=== PATIENT | female | born 1945 | race Caucasian/White ===

== ENCOUNTER 2018-01-23 08:51 | Outpatient (REF) | payer MEDICARE, OTHER, SELFPAY ==
[2018-01-23 13:41] LABS: BUN 11 mg/dL (7-18); CREATININE 0.89 mg/dL (0.55-1.02); Calcium 8.7 mg/dL (8.5-10.1); Chloride 105 mmol/L (98-107); Cholesterol 185 mg/dL (50-200); Glucose 93 mg/dL (70-100); HDL Cholesterol 62 mg/dL (40-60); LDL CHOLESTEROL 103 mg/dL (<100); Potassium 4.1 mmol/L (3.5-5.1); Sodium 142 mmol/L (136-145); TSH (W/Ref FT4) 2.18 uIU/mL (0.358-3.74); Triglyceride 148 mg/dL (30-150)
== END 2018-01-23 09:11 ==
LOC: NCHCN 08:51
PROVIDERS: PCP Family Medicine; Visit Provider Family Medicine
DX: I10 Essential (primary) hypertension (principal); E03.9 Hypothyroidism, unspecified; E78.5 Hyperlipidemia, unspecified
CPT/HCPCS: 80048; 80061; 83721; 84443

== ENCOUNTER 2019-02-28 09:04 | Outpatient (REF) | payer MEDICARE, OTHER, SELFPAY ==
[2019-02-28 13:02] LABS: Anion Gap 11.5 mmol/L (3-11); BUN 10 mg/dL (7-18); CO2 26.5 mmol/L (21.0-32.0); CREATININE 0.98 mg/dL (0.55-1.02); Calcium 9.2 mg/dL (8.5-10.1); Chloride 105 mmol/L (98-107); Estimated GFR 55.33 (mL/min/1.73m2); Glucose 92 mg/dL (70-100); Potassium 3.9 mmol/L (3.5-5.1); Sodium 143 mmol/L (136-145); TSH (W/Ref FT4) 1.69 uIU/mL (0.36-3.74)
[2019-02-28 13:19] LABS: HGB 14.7 g/dL (12.0-15.5); Mean Corp. HGB Concentration 32.7 g/dL (32.0-36.0); Mean Corpuscular Hemoglobin 29.3 pg (27.0-33.0); Mean Corpuscular Volume 89.6 fL (80-95); Mean Platelet Volume 11.1 fL (8.0-11.0); Platelet Count 301 x1000/uL (130-400); RBC 5.02 m/cumm (4.00-5.20); RBC Distribution Width 13.9 % (11.7-14.6); White Blood Cell Count 8.36 k/cumm (4.4-10.8)
== END 2019-02-28 09:24 ==
LOC: NCHCN 09:04
PROVIDERS: PCP Family Medicine; Visit Provider Family Medicine
DX: I10 Essential (primary) hypertension (principal); E03.9 Hypothyroidism, unspecified
CPT/HCPCS: 80048; 85027; 84443

== ENCOUNTER 2019-04-28 01:22 | Outpatient (CLI) | payer MEDICARE, OTHER, SELFPAY ==
--- NOTE | 2019-04-28 11:01 | DI.MAMMO_ITS ---
EXAM: MAMMO SCREENING CLINICAL HISTORY: SCREENING Z12.31. TECHNIQUE: Full field digital CC and MLO mammographic images were obtained with 3D tomosynthesis and utilizing computer aided detection (CAD). COMPARISON: 2009 to 2016 FINDINGS: Breast Density - Category C - Heterogeneously dense Masses/Architectural Distortion: None seen. Microcalcifications: No suspicious pleomorphic-type calcifications are seen. There are scattered coar se calcifications in both breasts. Skin Thickening/Nipple Retraction: None. Axilla: Unremarkable. There is motion in the left cc view. A repeat left CC view is requested at no additional charge. IMPRESSION: 1. Right breast: BI-RADS Cat 2 - Benign Findings. No significant interval change with no specific fe atures of malignancy noted. 2. Left breast: BI-RADS Cat 0 - Assessment Incomplete: Repeat left CC view is requested due to motion . 3. Unless there is more urgent need, screening mammography is recommended, as per [employer] guidelines. BI-RADS Cat 0 - Assessment Incomplete: Need additional imaging evaluation BI-RADS Cat 2 - Benign Findings Breast Density - Category C - Heterogeneously dense A negative radiographic report should not delay biopsy if a dominant or clinically suspicious mass is present. Up to ten percent of cancers are not identified on mammography. A negative report may reinforce clinical impression. Adenosis and dense breasts may obscure an underlying neoplasm. False positive reports average 6 to 10%. Patient will receive a letter notifying them of these results.
== END 2019-04-28 01:42 ==
PROVIDERS: PCP Family Medicine; Visit Provider Family Medicine
DX: Z12.31 Encounter for screening mammogram for malignant neoplasm of breast (principal); R92.8 Other abnormal and inconclusive findings on diagnostic imaging of breast
CPT/HCPCS: 77063; 77067

== ENCOUNTER 2019-05-05 01:39 | Outpatient (CLI) | payer MEDICARE, OTHER, SELFPAY ==
--- NOTE | 2019-05-05 13:46 | DI.MAMMO_ITS ---
EXAM: MG MAMMO SCREEN CALL BACK UNI CLINICAL HISTORY: F/U ABNL MAMMO, REPEAT LT CC VIEW DUE TO MOTION TECHNIQUE: Craniocaudal full Field Digital Mammography views of the left breast with Computer Aided Diagnosis followed by Tomosynthesis . COMPARISON: Priors available for comparison. FINDINGS: Mammography/Tomosynthesis: Masses/Architectural Distortion: None seen. Microcalcifictions: No suspicious pleomorphic-type are seen. Skin Thickening/Nipple Retraction: None. IMPRESSION: 1. No evidence of malignancy is noted. 2. Unless there is more urgent need, follow-up screening mammography is recommended, as per [employer] guidelines. ACR BI-RAD Category- 1 Negative Breast Density - Category C - Heterogeneously dense The mammogram demonstrates the patient's breast tissue is dense. Dense breast tissue is very common a nd is not abnormal but dense breast tissue can make it harder to find cancer on a mammogram. Also, de nse breast tissue may increase their breast cancer risk. This information about the result of the [facility] mogram report was provided to the patient to raise their awareness. Use this report when you speak wi th the patient about their risks for breast cancer, which includes their family history. At that time , you may recommend for more screening tests (Ultrasound or MRI) as they might be useful based on the ir risk. A negative radiographic report should not delay biopsy if a dominant or clinically suspicious mass is present. Up to ten percent of cancers are not identified on mammography. A negative report may reinforce clinical impression. Adenosis and dense breasts may obscure an underlying neoplasm. False positive reports average 6 to 10%. Patient will receive a letter notifying them of these results.
== END 2019-05-05 01:59 ==
PROVIDERS: PCP Family Medicine; Visit Provider Family Medicine
DX: Z12.31 Encounter for screening mammogram for malignant neoplasm of breast (principal); R92.8 Other abnormal and inconclusive findings on diagnostic imaging of breast; N64.59 Other signs and symptoms in breast
CPT/HCPCS: 77063; 77067

== ENCOUNTER 2019-10-15 09:01 | Inpatient (IN) | payer MEDICARE, SELFPAY ==
[2019-10-15] VITALS (81 sets, daily range): BP systolic 112–180; BP diastolic 60–146; PULSE 60–123; RESP 13–26; TEMP 36.6–37.3; O2SAT 91–100
--- NOTE | 2019-10-15 08:52 | ED.GENADUL_ITS ---
Discharge Plan Disposition Patient Disposition: [facility] INPATIENT Condition: Critical Discharge Details Chief Complaint: CVA/TIA Clinical Impression: Acute right MCA stroke Admit Date/Time: 10/15/19 15:00 Admit Provider: Tamela Mata Attending Provider: Tamela Mata Primary Care Provider: Brandie Yost ED Provider: Janeen Andres Discharge Data Discharge Date/Time-TO BE ENTERED AT DEPARTURE: 10/15/19 17:02 Medical Decision Making 0945 -- 74-year-old female with a history of previous cva 10 years ago w/o focal deficits, hypertension, hyperlipidemia and hypothyroidism presents as a stroke alert Unknown timeframe of symptoms. Found by a neighbor at 8 AM with left facial droop, left arm and leg weakness. On arrival to ED, patient noted to have right-sided gaze, left facial droop, inability to lift left arm, and 2/5 muscle strength left leg. Sent directly to CT which notes a possible right hemispheric infarct with possible acute thrombosis right MCA. Patient oriented x3 and able to answer questions but with worsening level of alertness. Pt placed on end tidal CO2. Low threshold for intubation. Referred for recommended CTA brain and neck. 1005 --patient remains arousable, oriented x3 and able answer questions. Mental status sluggish but arousable. Able to follow commands. GCS 14. 1030 --CTA head and neck notes an occlusion of the right MCA. Case discussed with [facility] who will page neurology. 1055 --d/w [facility] neurology Dr. Sumner who reviewed images - thinks cva is too well advanced and no acute intervention recommended at this time. Recommends continued medical management. Patient should be sent to neurology unit where there can be frequent neuro checks and stroke management. No beds available there. Recommends permissive hyper tension to keep systolic blood pressure 160s to 180s. 1105 --discussed with [facility] neurology Dr. Palm -accepts patient for transfer. Patient remains hemodynamically stable and able to answer questions and follow commands. Patient Sister Carlene in [place] ([phone]) notified and she is planning to come to [place] to see patient. Patient's son Pawel Parson in [place] notified. [id number] --[facility] transfer center called to state there would not be bed availability for the next 24 hours. Patient is agreeable with admission here while awaiting transfer to [facility]. She remains hemodynamically stable, oriented x3 and able to follow commands. Case discussed with hospitalist who accepts patient for admission here while waiting transfer to [facility]. Medical Records Medical records reviewed: Yes I reviewed the patient's medical records. Imaging Data Radiologic Study: Radiologist's impression: CT HEAD - STROKE PROTOCOL CLINICAL HISTORY: stroke like symptoms, r/o acute cva TECHNIQUE: COMPARISON: No exams were available for comparison FINDINGS: CT examination of the head was performed without contrast administration. There is moderate generalized cerebral atrophy and there are patchy areas of decreased attenuation in periventricular white matter bilaterally. There is right frontal decreased attenuation and right temporal decreased attenuation suggesting a hemispheric infarct. There is increased attenuation of the middle cerebral art rosmery on the right raising the possibility of a luminal obstructing thrombus. Additional evaluation with CT angiography is suggested if clinically appropriate. No mass effect or intracranial hemorrhage seen. The orbital and temporal bone structures appear intact. The paranasal sinuses and mastoid air cells appear clear as visualized. IMPRESSION: Findings suggesting right hemisphere infarct with possible acute thrombosis right middle cerebral artery. Additional evaluation with CT angiography suggested if clinically appropriate. XR CHEST 2V PA LATERAL CLINICAL HISTORY: stroke alert, r/o acute disease TECHNIQUE: COMPARISON: No exams were available for comparison FINDINGS: The heart is not enlarged. There is mild prominence pulmonary interstitial markings which may represent mild chronic fibrotic changes. No focal consolidation seen. No pleural effusion seen. IMPRESSION: No evidence of acute process. HPI General Mode of arrival: EMS . Date/Time Provider Initiated Documentation: 10/15/19 09:05 . Limitations to Documentation: physical limitation . Information obtained by: patient and EMS . HPI Narrative: Patient is a 74-year- old female with a history of hypertension, hyperlipidemia, hypothyroidism who is normally alert, ambulatory and independent who presents with left-sided facial droop and left arm and leg weakness of unknown timeframe. Patient last seen normal at 530 last night at a group function. Patient told EMS that she got up to go to the bathroom at 330 and fell. Neighbor or friend checked on her around 8:00 and patient was noted to have left-sided facial droop, left arm and leg weakness. Related Data Home Medications Medication Instructions Recorded Confirmed aspirin [Aspir 81] 81 mg PO DAILY 04/20/14 10/15/19 cholecalciferol (vitamin D3) 1,000 units PO DAILY 04/20/14 10/15/19 levothyroxine 75 mcg PO DAILY 04/20/14 10/15/19 lisinopril 40 mg PO DAILY 04/20/14 10/15/19 naproxen 500 mg PO BID PRN PRN #30 tablet 04/20/14 10/15/19 simvastatin 40 mg PO DAILY 04/20/14 10/15/19 amlodipine 5 mg PO DAILY 10/15/19 10/15/19 Previous Rx's Medication Instructions Recorded naproxen 500 mg PO BID PRN PRN #30 tablet 04/20/14 Allergies Allergy/AdvReac Type Severity Reaction Status Date / Time diphenhydramine HCl AdvReac Mild sleepy Unverified 10/15/19 10:44 [From Eduardo] Review of Systems All systems reviewed & are unremarkable except as noted in HPI and below Constitutional Constitutional: Reports as per HPI, Denies chills and Denies fever(s) Eyes Eyes: Denies blurry vision ENT Ears, Nose, Mouth, and Throat: Denies dizziness, Denies sore throat and Denies throat swelling Cardiovascular Cardiovascular: Denies chest pain and Denies dyspnea Respiratory Respiratory: Denies cough and Denies dyspnea Gastrointestinal Gastrointestinal: Denies abdominal pain, Denies diarrhea and Denies vomiting Genitourinary Genitourinary: Denies hematuria and Denies dysuria Musculoskeletal Musculoskeletal: Denies back pain and Denies numbness Integumentary/Breasts Skin/Breast: Denies lesions and Denies rash Neurologic Neurologic: Denies dizziness, Denies localized weakness and Denies numbness Allergic/Immunologic Allergic/Immunologic: Denies throat swelling [facility] Medical History (Updated 10/15/19 @ 15:15 by Deborah Boyer NP) HTN (hypertension) (Chronic) Hx of hyperlipidemia (Acute) Hypothyroidism (Chronic) Surgical History (Updated 10/15/19 @ 08:53 by Janene Andres DO) History of tonsillectomy (Chronic) Social History Smoking/Tobacco Use Status: Current every day Alcohol Intake: current Alcohol Intake frequency: a few times a month Drug use: Never Substance use type: does not use Do you feel safe at home: Yes Exam Const General: cooperative and no acute distress Orientation: awake HENKS Head: normal to inspection Face and sinus: normal facial exam Eyes General: appearance normal, both eyes and all related structures Pupils: PERRL EOM: EOM intact bilaterally Neck Neck: normal visual inspection and No submandibular swelling Lymphatic: no lymphadenopathy noted Chest Chest: normal inspection of the chest and no tenderness Resp Effort & Inspection: normal respiratory effort and able to speak in complete sentences Auscultation: clear to auscultation bilaterally Cardio Rate: regular rate Rhythm: regular rhythm GI Inspection: normal to inspection Palpation: soft, not firm, not rigid and nontender Auscultation: normal bowel sounds Skin General skin exam: no rashes or lesions noted Neuro General: patient awake and patient oriented x3 Cranial Nerves: other (Right-sided gaze, left-sided facial droop) Cognition: normal cognition Speech: abnormal speech slurred Motor: strength abnormal (2/5 strength left lower extremity, 4/5 strength right lower extremity.) and other (Unable to lift left arm. Able to lift right arm normally.) Sensory Exam: no sensory deficits noted Extrem General: normal to inspection, full ROM, capillary refill normal, no calf tenderness bilaterally and no edema Psych Appearance: grossly normal Mental Status: mental status grossly normal Affect: normal affect Critical Care Time Critical Care Time Critical Care Time: Yes Total Critical Care Time: 90 Attestation: I spent 90 minutes of critical care time with this patient. This does not include time spent on separately reported billable procedures.
--- NOTE | 2019-10-15 09:20 | DI.CT_ITS ---
EXAM: CT HEAD - STROKE PROTOCOL CLINICAL HISTORY: stroke like symptoms, r/o acute cva TECHNIQUE: COMPARISON: No exams were available for comparison FINDINGS: CT examination of the head was performed without contrast administration. There is moderate generali zed cerebral atrophy and there are patchy areas of decreased attenuation in periventricular white mat ter bilaterally. There is right frontal decreased attenuation and right temporal decreased attenuati on suggesting a hemispheric infarct. There is increased attenuation of the middle cerebral artery on the right raising the possibility of a luminal obstructing thrombus. Additional evaluation with CT a ngiography is suggested if clinically appropriate. No mass effect or intracranial hemorrhage seen. The orbital and temporal bone structures appear intact. The paranasal sinuses and mastoid air cells a ppear clear as visualized. IMPRESSION: Findings suggesting right hemisphere infarct with possible acute thrombosis right middle cerebral art rosmery. Additional evaluation with CT angiography suggested if clinically appropriate.
--- NOTE | 2019-10-15 09:20 | DI.RAD_ITS ---
EXAM: XR CHEST 2V PA LATERAL CLINICAL HISTORY: stroke alert, r/o acute disease TECHNIQUE: COMPARISON: No exams were available for comparison FINDINGS: The heart is not enlarged. There is mild prominence pulmonary interstitial markings which may repres ent mild chronic fibrotic changes. No focal consolidation seen. No pleural effusion seen. IMPRESSION: No evidence of acute process.
--- NOTE | 2019-10-15 09:30 | DI.CT_ITS ---
EXAM: CT BRAIN NECK CTA CLINICAL HISTORY: r/o acute thrombosis R MCA TECHNIQUE: COMPARISON: No exams were available for comparison FINDINGS: CT angiography of the cervical cranial region was performed with intravenous infusion of 85 cc of Omn ipaque 350. Images obtained through the lung apices are unremarkable. No gross cervical mass or adenopathy. Tracheolaryngeal structures appear intact. There is mild atheromatous calcification of the aortic arch and major branch vessels. Vertebral arteries appear normal throughout their course as does the basilar artery. No aneurysm, di ssection, or stenosis left common carotid artery shows calcified atheromatous plaque in its distal ex tent, calcified plaque also present at the origin of the left internal carotid artery without stenosi s in excess of 50 percent luminal diameter. Remainder of the left internal carotid artery appears in tact except for mild calcified atheromatous plaque in its cavernous portion. The right internal carotid artery shows very dense extensive calcification at its origin and is occlu ded, presumably on a chronic basis. Intracranially the left internal carotid artery shows minimal calcified atheromatous plaque in cavern ous portion. The left ICA supplies both anterior cerebral arteries across the anterior communicating artery. The horizontal segment of the right anterior cerebral artery is opacified but there is an o cclusion at the middle cerebral artery origin on the right. This corresponds with the patient's susp ected right hemispheric CVA. Intracranial vertebral arteries and basilar artery appear normal. Posterior cerebral arteries appear intact bilaterally. Left middle cerebral artery and major branches appear intact. IMPRESSION: Occlusion of proximal right internal carotid artery with very dense atheromatous calcification, proba ishaan chronic. Occlusion at origin of right middle cerebral artery, the anterior cerebral arteries are both supplied from the left internal carotid artery. The right A1 segment is opacified to the level of the origin of the right middle cerebral artery.
[2019-10-15 09:42] LABS: Abs Immature Grans 0.02 k/cumm (0.0-0.09); Absolute Basophil Count 0.01 k/cumm (0.0-0.2); Absolute Eosinophil Count 0.01 k/cumm (0.0-0.7); Absolute Lymphocyte Count 1.45 k/cumm (1.2-3.4); Absolute Monocyte Count 0.45 k/cumm (0.11-0.7); Absolute Neutrophil Count 9.53 k/cumm (1.2-6.7); Basophils % 0.1; Eosinophils % 0.1; HCT 43.3 % (36.0-46.0); HGB 14.8 g/dL (12.0-15.5); Immature Grans % 0.2 %; Lymphocytes % 12.6; Mean Corp. HGB Concentration 34.2 g/dL (32.0-36.0); Mean Corpuscular Hemoglobin 30.3 pg (27.0-33.0); Mean Corpuscular Volume 88.5 fL (80-95); Mean Platelet Volume 10.1 fL (8.0-11.0); Monocytes % 3.9; Neutrophils % 83.1; Platelet Count 294 x1000/uL (130-400); RBC 4.89 m/cumm (4.00-5.20); RBC Distribution Width 13.5 % (11.7-14.6); White Blood Cell Count 11.47 k/cumm (4.4-10.8)
[2019-10-15 09:52] LABS: PTT Activated 26.5 sec (21.0-31.4); Prothrombin Time 10.2 sec (9.3-11.0)
[2019-10-15 09:54] LABS: ALT 23 U/L (14-59); AST 21 U/L (15-37); Albumin 4.2 g/dL (3.4-5.0); Alkaline Phosphatase 126 U/L (46-116); Anion Gap 11.3 mmol/L (3-11); BUN 17 mg/dL (7-18); Bilirubin, Total 0.6 mg/dL (0.2-1.0); CO2 24.7 mmol/L (21.0-32.0); CREATININE 1.12 mg/dL (0.55-1.02); Chloride 105 mmol/L (98-107); Glucose 121 mg/dL (74-106); Magnesium 2.1 mg/dL (1.8-2.4); Sodium 141 mmol/L (136-145); Total Protein 7.7 g/dL (6.4-8.2); Troponin I < 0.05 ng/mL (<0.06)
[2019-10-15 10:02] LABS: TSH (W/Ref FT4) 1.57 uIU/mL (0.36-3.74)
[2019-10-15] MEDS: Normal Saline - Diluent 50 ML VIAL IV (10:13)
[2019-10-15] MEDS: Omnipaque 350 MG/ML 100 ML BTL IJ (10:13)
[2019-10-15 10:45] LABS: Creatine Kinase 130 U/L (26-192)
[2019-10-15] MEDS: Aspirin 300 MG SUPP PR (10:56)
[2019-10-15] MEDS: Normal Saline 500 ML IV ×2 (10:57→12:15)
--- NOTE | 2019-10-15 15:06 | HPE_ITS ---
Date of service: 10/15/19 Time of Service: 15:06 Assessment and Plan Assessment and plan (1) Acute right MCA stroke: Status: Acute Assessment and plan: has been accepted at [facility] for neurology evaluation. bed not available for 24 hours. will stay here on telemetry while awaiting open bed. received asa in ED, continue statin, permissive hypertension. add lipids to am labs. (2) HTN (hypertension): Status: Chronic Assessment and plan: hold all antihypertensives. BP goal 160-180 systolic, monitor (3) Hx of hyperlipidemia: Status: Acute Assessment and plan: continue statin, lipid panel pending (4) Hypothyroidism: Status: Chronic Assessment and plan: TSH is 1.57 (5) DVT prophylaxis: Status: Acute Assessment and plan: TEDS, SCD's, lovenox (6) Discharge planning issues: Status: Acute Assessment and plan: will transfer to [facility] when bed available. case discussed with Dr Mata who is in agreement History of Present Illness History of Present Illness Chief Complaint: left sided weakness Narrative: Patient is a 74-year-old female with a history of hypertension, hyperlipidemia, hypothyroidism who is normally alert, ambulatory and independent who presents with left-sided facial droop and left arm and leg weakness of unknown timeframe. Patient last seen normal at 530 last night at a group function. Patient told EMS that she got up to go to the bathroom at 330 and fell. Neighbor or friend checked on her around 8:00 and patient was noted to have left-sided facial droop, left arm and leg weakness. work up in the ED shows a possible right hemispheric infarct with possible acute thrombosis right MCA on CT without co ntrast and a CTA shows occulsion of right MCA. Neurology at [facility] was contacted and although they agree she should be transferred there are no beds. [facility] was called and accepted but bed not available for 24 hours. Review of Systems Constitutional Constitutional: Reports as per HPI and Reports weakness Eyes Eyes: Denies loss of vision Cardiovascular Cardiovascular: Denies chest pain and Denies dyspnea Respiratory Respiratory: Denies cough and Denies dyspnea Gastrointestinal Gastrointestinal: Denies abdominal pain, Denies nausea and Denies vomiting Musculoskeletal Musculoskeletal: Denies arthralgias and Reports muscle weakness Neurologic Neurologic: Reports localized weakness, Denies loss of vision, Denies seizure- like activity and Reports weakness Hematologic/Lymphatic Hematologic/Lymphatic: Denies easy bleeding and Denies easy bruising [facility] Medical History (Updated 10/15/19 @ 15:15 by Deborah Boyer NP) HTN (hypertension) (Chronic) Hx of hyperlipidemia (Acute) Hypothyroidism (Chronic) Surgical History (Updated 10/15/19 @ 08:53 by Janeen Andres DO) History of tonsillectomy (Chronic) Social History Smoking/Tobacco Use Status: Current every day Alcohol Intake: current Alcohol Intake frequency: a few times a month Drug use: Never Substance use type: does not use Do you feel safe at home: Yes Meds Home Medications and Allergies Home Medications Medication Instructions Recorded Confirmed Type aspirin [Aspir 81] 81 mg PO DAILY 04/20/14 10/15/19 History cholecalciferol (vitamin D3) 1,000 units PO DAILY 04/20/14 10/15/19 History levothyroxine 75 mcg PO DAILY 04/20/14 10/15/19 History lisinopril 40 mg PO DAILY 04/20/14 10/15/19 History naproxen 500 mg PO BID PRN PRN #30 tablet 04/20/14 10/15/19 Rx simvastatin 40 mg PO DAILY 04/20/14 10/15/19 History amlodipine 5 mg PO DAILY 10/15/19 10/15/19 History Allergies Allergy/AdvReac Type Severity Reaction Status Date / Time diphenhydramine HCl AdvReac Mild sleepy Unverified 10/15/19 10:44 [From Eduardo] Exam Const General: cooperative and comfortable Nutritional Appearance: average body habitus Orientation: alert, awake, oriented to person and oriented to place HENAL Head: normal to inspection, normocephalic and atraumatic Mouth: oral mucosae normal Resp Effort & Inspection: normal respiratory effort Auscultation: clear to auscultation bilaterally Cardio Rate: regular rate and tachycardic Rhythm: regular rhythm GI Inspection: normal to inspection Palpation: soft Auscultation: normal bowel sounds Skin General skin exam: no rashes or lesions noted Neuro General: patient awake and oriented Patient Orientation: Person and Place Cognition: normal cognition Speech: speech normal Motor: strength abnormal (left upper and lower hemiparesis, left sided neglect ) Results Labs Result diagrams: 10/16/19 06:19 10/16/19 06:19 Labs: Laboratory Results - last 24 hr 10/15/19 10/15/19 10/15/19 08:30 08:30 08:30 WBC 11.47 H RBC 4.89 Hgb 14.8 Hct 43.3 MCV 88.5 MCH 30.3 MCHC 34.2 RDW 13.5 Plt Count 294 MPV 10.1 Immature Gran % 0.2 Neutrophils % 83.1 Lymphocytes % 12.6 Monocytes % 3.9 Eosinophils % 0.1 Basophils % 0.1 Absolute Neutrophils 9.53 H Absolute Lymphocytes 1.45 Absolute Monocytes 0.45 Absolute Eosinophils 0.01 Absolute Basophils 0.01 PT 10.2 INR 1.0 APTT 26.5 Sodium 141 Potassium 4.0 Chloride 105 Carbon Dioxide 24.7 Anion Gap 11.3 H BUN 17 Creatinine 1.12 H Estimated GFR/1.73 m2 47.30 Glucose 121 H Calcium 9.0 Magnesium 2.1 Total Bilirubin 0.6 AST 21 ALT 23 Alkaline Phosphatase 126 H Creatine Kinase Troponin I < 0.05 Total Protein 7.7 Albumin 4.2 TSH 10/15/19 10/15/19 08:30 09:29 WBC RBC Hgb Hct MCV MCH MCHC RDW Plt Count MPV Immature Gran % Neutrophils % Lymphocytes % Monocytes % Eosinophils % Basophils % Absolute Neutrophils Absolute Lymphocytes Absolute Monocytes Absolute Eosinophils Absolute Basophils PT INR APTT Sodium Potassium Chloride Carbon Dioxide Anion Gap BUN Creatinine Estimated GFR/1.73 m2 Glucose Calcium Magnesium Total Bilirubin AST ALT Alkaline Phosphatase Creatine Kinase 130 Troponin I Total Protein Albumin TSH 1.57 Last Vital Signs Temp 36.7 C 10/15/19 09:44 Pulse 67 10/15/19 14:45 Resp 18 10/15/19 14:50 BP 148/73 H 10/15/19 14:45 Pulse Ox 95 10/15/19 14:50 COVID-19 Screening In the past 14 days, have you traveled outside of [place]?: NO Had IN PERSON contact w/suspected or confirmed C-19 person: No
[2019-10-15] MEDS: Normal Saline 1,000 ML 80 ML IV (18:09)
--- NOTE | 2019-10-16 | DI.US_ITS ---
APPROVED REPORT EXAM: Comprehensive 2D, Doppler, and color-flow Echocardiogram Patient Location: In-Patient Room/Bed: 211 Money Laundering Investigator: Karen Lai RDCS (AE) Indications: New CVA Other Information Study Quality: Technically Difficult. Technically limited study due to inability to position patient. Conclusion Left Ventricle : The left ventricle is normal size. The left ventricular systolic function is normal. The left ventricular ejection fraction is within the normal range. There is normal left ventricular wall thickness. There is normal LV segmental wall motion. The left ventricular diastolic function is normal. LVEF is 55-60%. Right Ventricle : Right ventricle is not well visualized. Right ventricular systolic function could n ot be assessed. Atria : The left atrium size is normal. Right atrium is not well visualized. The interatrial septum i s intact with no evidence for an atrial septal defect. Valves: There are no hemodynamically significant valvular lesions. Great Vessels : The ascending aorta is mildly dilated. Aortic arch is normal in caliber. IVC is eric l in size and collapses >50% with inspiration. Please see remainder of study for further details There is no prior study available for comparison. Wall motion Left Ventricle The left ventricle is normal size. The left ventricular systolic function is normal. The left ventric ular ejection fraction is within the normal range. There is normal left ventricular wall thickness. T here is normal LV segmental wall motion. The left ventricular diastolic function is normal. There is no ventricular septal defect visualized. LVEF is 55-60%. Right Ventricle Right ventricle is not well visualized. Right ventricular systolic function could not be assessed. Atria The left atrium size is normal. Right atrium is not well visualized. The interatrial septum is intact with no evidence for an atrial septal defect. Aortic Valve Aortic valve is trileaflet. The Aortic valve is sclerotic. There is no aortic valvular stenosis. No a ortic regurgitation is present. Mitral Valve There is mitral annular calcification. No evidence of mitral valve stenosis. Trace mitral regurgitati on. Tricuspid Valve The tricuspid valve is normal in structure. There is no tricuspid valve stenosis. Trace tricuspid reg urgitation. Pulmonic Valve Pulmonic valve is not well visualized. There is no pulmonic valvular stenosis. There is no pulmonic v alvular regurgitation. Great Vessels The aortic root is normal in size. The ascending aorta is mildly dilated. Aortic arch is normal in ca liber. IVC is normal in size and collapses >50% with inspiration. Pericardium There is no pericardial effusion. 2D Dimensions IVSD d PLAX 0.86 cm F: 0.6-1.0 LV Vol A2C d MOD 86.1 mL LVPW d PLAX 0.85 cm F: 0.6 - 1.0 LV Vol A4C d MOD 71.5 mL LVID d PLAX 4.15 cm F: 3.8 - 5.2 LA vol/ BSA A4C s A-L 13.4 mL/m2 LVDs 2.80 cm F: 2.2 - 3.5 LA Area A4C s MOD 10.42 cm2 Ao Root d 2.85 cm F: 2.7 - 3.3 LV EF A4C MOD 50.9 % Ao Asc Diam d 3.41 cm F: 2.3 - 3.1 LV EF A2C MOD 59.3 % LV EF Teichholz 59.6 % LV EF Biplane MOD 56.0 % LVEF (Spear's) 56.02 % F: 54 - 74 SV 45.79 mL LV Volume 65.54 mL F: 46 - 106 SV Index 27.64 mL/m2 LV Volume Index 39.72 mL/m2 F: 29 - 61 LV Vol Biplane MOD 81.7 mL FS 31.30 % LV Diastology MV E' medial 0.077 (>0.07 m/s) E/A Ratio 1.1 LV E/e MED 15.30 (<14) MV E Vmax 1.18 (0.4-1.3 m/s) MV E' lateral 0.100 (>0.1 m/s) MV A Vmax 1.05 (0.4-1.3 m/s) LV E/e LAT 11.70 (<14) MV E/A Ratio 1.11 MV E/E' medial 15.35 MV E/E' lateral 11.73 Aortic Valve LVOT Area 3.52 cm2 AoV Area Vmax 3.40 cm2 LVOT Vmax 1.28 m/s AoV Area/ BSA (Vmax) 2.06 cm2/m2 LVOT Mean Olegario. 0.92 m/s LYDIA Mean Olegario. 3.17 cm2 LVOT Peak Grad 6.5 mmHg LYDIA Mean Olegario. Index 1.91 cm2/m2 LVOT Mean Grad 3.7 mmHg LVOT VTI 0.325 m LVOT Diam s 2.10 cm AoV Vmax 1.32 m/s Velocity Ratio 0.96 AoV Mean Olegario. 1.03 m/s AoV Peak Grad 7.0 mmHg LVOT SV 114.51 mL AoV Mean Grad 4.4 mmHg AoV VTI 0.328 m AoV Area VTI 3.50 cm2 AoV Area/ BSA (VTI) 2.11 cm/m2 Mitral Valve MV DT 217 (160-240 msec) MV PHT 63 msec MV Area PHT 3.50 cm2 Pulmonary Valve PV Vmax 0.83 (0.5-1.5 m/s) RVOT Peak Gr. 2.32 mmHg PV Peak Grad 2.8 mmHg RVOT Mean Gr. 1.40 mmHg PV Mean Grad 1.9 mmHg RVOT VTI 0.176 m PV VTI 0.188 m RVOT Vmax 0.76 m/s
[2019-10-16 03:40] VITALS: BP 152/74; PULSE 95; RESP 20; TEMP 36.9; O2SAT 96
[2019-10-16] MEDS: Normal Saline 1,000 ML 80 ML IV (06:14)
[2019-10-16 07:02] LABS: BUN 12 mg/dL (7-18); CREATININE 0.98 mg/dL (0.55-1.02); Calcium 8.4 mg/dL (8.5-10.1); Calculated LDL 93 mg/dL (<100); Chloride 107 mmol/L (98-107); Cholesterol 163 mg/dL (<200); Estimated GFR 55.18 (mL/min/1.73m2); Glucose 103 mg/dL (74-106); HDL Cholesterol 52 mg/dL (40-60); Potassium 3.4 mmol/L (3.5-5.1); Sodium 143 mmol/L (136-145); Triglyceride 92 mg/dL (<150)
[2019-10-16 07:03] LABS: Abs Immature Grans 0.02 k/cumm (0.0-0.09); Absolute Basophil Count 0.01 k/cumm (0.0-0.2); Absolute Eosinophil Count 0.02 k/cumm (0.0-0.7); Absolute Lymphocyte Count 1.98 k/cumm (1.2-3.4); Absolute Monocyte Count 0.96 k/cumm (0.11-0.7); Absolute Neutrophil Count 7.87 k/cumm (1.2-6.7); Basophils % 0.1; Eosinophils % 0.2; HCT 41.2 % (36.0-46.0); HGB 13.8 g/dL (12.0-15.5); Immature Grans % 0.2 %; Lymphocytes % 18.2; Mean Corp. HGB Concentration 33.5 g/dL (32.0-36.0); Mean Corpuscular Volume 89.6 fL (80-95); Mean Platelet Volume 10.4 fL (8.0-11.0); Monocytes % 8.8; Neutrophils % 72.5; Platelet Count 255 x1000/uL (130-400); RBC Distribution Width 13.5 % (11.7-14.6); White Blood Cell Count 10.86 k/cumm (4.4-10.8)
[2019-10-16 07:16] VITALS: BP 168/74; PULSE 98; RESP 20; TEMP 36.7; O2SAT 96
[2019-10-16 08:27] LABS: COVID-19 RT-PCR UVMMC Result Negative (Negative)
--- NOTE | 2019-10-16 09:31 | IN_ITS ---
Date of service: 10/16/19 Time of Service: 09:31 PT Notes Visit Reasons: Cerebrovascular accident Physical Therapy Inpatient Initial Evaluation Date: 10/16/2019 Referring Doctor: Deborah Boyer NP PT Orders: PT CONSULT: Eval/treat Precautions: Fall. Standard. Activity as tolerated. Patient Profile/Admitting Diagnosis: Kristie is a 74-year-old female who presented to the ED on 10/15/2019 with chief presentation of left facial drooping, left arm and left leg weakness, and right-sided gaze deviation. 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 PMHX: Medical History (Updated 10/15/19 @ 15:15 by Deborah Boyer NP) HTN (hypertension) (Chronic) Hx of hyperlipidemia (Acute) Hypothyroidism (Chronic) Surgical History (Updated 10/15/19 @ 08:53 by Janeen Andres DO) History of tonsillectomy (Chronic) Social History/Home Situation: Kristie reports that she lives alone in a private home in [place], [place]. She is independent with all aspects of ADLs prior to admission without an assistive ambulatory device nor adaptive equipment. She has a son in [place] who works as an orthopedic surgeon and a [id number] who is an OB-COMMISSIONING AGENT. 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 She does not have an emergency alert device. Equipment Owned/DME: None Subjective: Kristie states that she was going to the bathroom yesterday at around 3 PM when her L leg suddenly gave way. She reports that she stayed on the floor until about 8 pm when her friend came in to visit her and saw her disposition. She was then brought to the ED via EMS for immediate medical i ntervention. 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 Objective: General Observation: IV in L UE. Head turned to the R. Significantly reduced awareness of L UE/LE noted. TEDS on B legs. Antithromoboembolic pumps on B legs. BREE Reeder present in room throughout evaluation. L hand and wrist flexed with minimal swelling observed. Ferrari catheter in place. Mental Status: Lethargic but stayed somewhat awake during PT evaluation. Able to follow single-step commands. Oriented to person and place. Pain: Reported discomfort with passive movement of UE and LE ROM: Right Upper Extremity: Shoulder Flexion WFL. Shoulder abduction WFL. Elbow flexion WFL. Wrist flexion WFL. Opening and closing of hand WFL. Left Upper Extremity: AROM unable to perfrom using all L UE joints. PROM full but with mild difficulty due to spasticity. Right Lower Extremity: Hip flexion WFL. Hip abduction WFL. Knee flexion WFL. Ankle dorsiflexion WFL. Ankle plantarflexion WFL. Left Lower Extremity: AROM unable to perform using all L LE joints. PROM full but with mild difficulty due to spasticity. Strength: Right Upper Extremity: Shoulder flexors 5/5. Shoulder abductors 5/5. Elbow flexors 5/5. Elbow extensors 5/5. Process Development Associate strong. Left Upper Extremity: 0/5 Right Lower Extremity: Hip flexors 5/5. Hip abductors 5/5. Knee flexors 5/5. Knee extensors 5/5. Ankle dorsiflexors 5/5. Ankle plantarflexors 5/5. Left Lower Extremity: 0/5 Spasticity Grade: Grade 3 on the Modified Ina Scale with limb where there is considerable increase in muscle tone with passive movement difficult Sensation: Impaired in L UE/LE as to light pressure; pain pathways intact Bed Mobility/Transfers: Rolling moderate assist of 2 to the L; maximal assist to the R Supine to sit maximal assist with maximal verbal cueing needed Sit to supine maximal assist with maximal verbal cueing needed Sit to stand Unable to perform Stand to sit Unable to perform Bed to chair Unable to perform Chair to bed Unable to perform Gait: Unable to perform Balance: Static Sitting: Fair Dynamic Sitting: Poor Static Standing: Unable to test Dynamic Standing: Unable to test Special Tests: Mobility Limitations Standardized Measure [facility] AM-PAC 6 clicks Basic Mobility Inpatient Short Form: Raw Score: 9 CMS Score: 81% deficit Informed Consent/Education: Patient instructed in purpose of PT consult and plan of care. Assessment: Kristie demonstrates significant impairment in bed mobility and requires total assistance with all transfers and ambulation task performance. She demonstrates left?sided neglect, 0/5 muscle strength on the L UE/LE, and Grade 3 spasticity on the Modified Ina Scale requiring skilled therapy services at this time. Kristie is a 74-year-old female who presented to the ED on 10/15/2019 with chief presentation of left facial drooping, left arm and left leg weakness, and right-sided gaze deviation. 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 Patient presents with clinical signs and symptoms consistent with current/admitting diagnoses that have resulted to mobility limitations, gait instability, generalized weakness, and impairment of motor control as demonstrated by the following impairment level findings: 1. Absent strength to left UE/LE major muscle groups 2. Impaired sitting and absent standing balance 3. Impaired activity tolerance 4. Limitation of joint range of motion in left UE/LE 5. Grade 3 spasticity on the modified Ina scale Impairments are contributing to the following functional limitations: 1. Dependent bed mobility skills 2. Dependent with transfers 3. Inability to ambulate 4. Increased fall risk Patient is assessed as a 88684 high complexity based on the following: History: 74-year-old female with impairment level findings, functional limitations, and past medical history as indicated above Examination: Demonstrable impairment in strength, balance, and mobility level with underlying impairments and functional limitations as documented above Presentation:Evolving Decision Makin high complexity Goals: Goals X1 week 1. Supine-Sit moderate assist 2. Sit-Supine moderate assist 3. Sit-Stand moderate assist 4. Stand-Sit moderate assist 5. Bed-Chair moderate assist 6. Chair-Bed moderate assist 7. Moderate assist gait on level surface with use of least restrictive device for at least 50 feet without report of pain nor dyspnea 8. Fair static and dynamic standing balance/tolerance Plan of Care/Treatment Plan: 1-2x/day, 7 days/week x 1 week. Plan of care has been reviewed with the LICENSED LOAN OFFICER ASSISTANT providing the service under Physical Therapy direction. Initiate Physical Therapy intervention for strengthening, bed mobility, transfers, gait, stairs, balance training, use of assistive device. PT Intervention: Session today consisted of initial physical therapy evaluation as well as initiating sitting balance tolerance while seated at edge of bed working on through the left UEs with moderate assist of PT and BREE Hector. Patient was also provided with proprioceptive neuromuscular facilitation for the left UE and LE. DISCHARGE RECOMMENDATIONS: Patient will highly benefit from direct transfer to an acute stroke rehab facility in order to address ongoing impairments and functional limitations. TREATMENT CODE/TIME: 54668 x 35 minutes, 88469 x 19 minutes beginning at 9 9:31 AM. Thank you very much for this referral. Steph Gamino PT, DPT, CLT [facility] [place], [place]
--- NOTE | 2019-10-16 10:12 | PDOC.CMIN ---
- If Service Date Differs Date of service: 10/16/19 Time of Service: 10:12 Care Management Initial Assess REASON FOR HOSPITALIZATION:: Acute right MCA stroke PAST MEDICAL HISTORY/PAST SURGICAL HISTORY:: Medical History (Updated 10/15/19 @ 15:15 by Deborah Boyer NP). HTN (hypertension) (Chronic). Hx of hyperlipidemia (Acute). Hypothyroidism (Chronic). Surgical History (Updated 10/15/19 @ 08:53 by Janeen Andres DO). History of tonsillectomy (Chronic) PREVIOUS FUNCTIONAL STATUS/SOCIAL/FAMILY SUPPORTS:: Kristie lives in [place]. CURRENT FUNCTIONAL STATUS:: LORAINE was unable to meet with Kristie today. Several attempts were made but she was sleeping or out of the room each time. Kristie will be transferred to [facility] later this afternoon. ADVANCE DIRECTIVES:: none on file Has patient been provided with info about the portal/API?: No Did the patient sign up for the portal?: No CODE STATUS:: Full Code INSURANCE COVERAGE / FINANCIAL ISSUES:: Medicare PRIMARY CARE PHYSICIAN:: Brandie Yost POTENTIAL DISCHARGE NEEDS:: Kristie will likely be transferred to a tertiary care facility PATIENT/FAMILY EDUCATION NEEDS:: Discharge plan, limitations, follow up plan, Ask Me Three TRANSPORTATION:: via ambulance coordinated by nursing mitigation supervisor PLAN:: Anjali will be transferred to [facility] later this afternoon. She will follow the plan of care established by their provider.
[2019-10-16 11:10] VITALS: BP 155/70; PULSE 56; RESP 18; TEMP 37.8; O2SAT 98
[2019-10-16 12:37] VITALS: O2SAT 98
--- NOTE | 2019-10-16 13:34 | DI.RAD_ITS ---
EXAM: XR HIP LT COMPLETE AP PELVIS CLINICAL HISTORY: fall injury, pain TECHNIQUE: COMPARISON: CT CT BRAIN NECK CTA from 10/15/2019 FINDINGS: Two views were obtained. There are mild degenerative changes of both hips. There is question minima l lucency projected over the femoral neck on the AP view and there is question of minimal cortical di scontinuity of the femoral neck on the lateral view. Nondisplaced fracture not excluded, additional evaluation with CT or MR suggested. IMPRESSION:
--- NOTE | 2019-10-16 14:07 | PGE_ITS ---
Date of Service Date of service: 10/16/19 Time of Service: 14:07 Assessment and Plan Assessment and plan (1) Left hip pain: Status: Acute Assessment and plan: xray questionable, CT pending. (2) Acute right MCA stroke: Status: Acute Assessment and plan: has been accepted at [facility] for neurology evaluation, bed still not available. will stay here on telemetry while awaiting open bed. continue statin, asa, permissive hypertension. lipids checked. (3) HTN (hypertension): Status: Chronic Assessment and plan: hold all antihypertensives. BP goal 160-180 sys tolic, monitor (4) Hx of hyperlipidemia: Status: Acute Assessment and plan: continue statin, lipid panel pending (5) Hypothyroidism: Status: Chronic Assessment and plan: TSH is 1.57 (6) DVT prophylaxis: Status: Acute Assessment and plan: TEDS, SCD's, lovenox (7) Discharge planning issues: Status: Acute Assessment and plan: will transfer to [facility] when bed available. case discussed with Dr Mata who is in agreement Subjective Subjective Interval history since last seen: c/o pain in left hip when working with PT. has been NPO awaiting swallow evaluation. hemodynamically stable with SBP 150- 170's which is within range requested by [facility] neurology. continue with left sided hemiparesis and neglect. Exam Const General: cooperative and comfortable Nutritional Appearance: average body habitus Orientation: alert, awake, oriented to person and oriented to place [facility] Head: normal to inspection, normocephalic and atraumatic Mouth: oral mucosae normal Resp Effort & Inspection: normal respiratory effort Auscultation: clear to auscultation bilaterally Cardio Rate: regular rate and tachycardic Rhythm: regular rhythm GI Inspection: normal to inspection Palpation: soft Auscultation: normal bowel sounds Skin General skin exam: no rashes or lesions noted Neuro General: patient awake and oriented Patient Orientation: Person and Place Cognition: normal cognition Speech: speech normal Motor: strength abnormal (left upper and lower hemiparesis, left sided neglect ) Objective Objective Clinical Data: Abnormal lab results 10/16/19 10/16/19 Range/Units 06:19 06:19 WBC 10.86 H (4.4-10.8) k/cumm Absolute Neutrophils 7.87 H (1.2-6.7) k/cumm Absolute Monocytes 0.96 H (0.11-0.7) k/cumm Potassium 3.4 L (3.5-5.1) mmol/L Anion Gap 15.0 H (3-11) mmol/L Calcium 8.4 L (8.5-10.1) mg/dL Vital Signs Temperature 37.8 C H 10/16/19 11:10 Temperature Source Tympanic 10/16/19 11:10 Pulse 56 L 10/16/19 11:10 Pulse Rhythm Regular 10/16/19 07:37 Pulse 90 10/15/19 16:31 Respiratory Rate 18 10/16/19 11:10 Respiratory Effort Non-Labored 10/16/19 07:37 Respiratory Depth Normal 10/16/19 07:37 Respiratory Pattern Normal 10/16/19 07:37 Blood Pressure 155/70 H 10/16/19 11:10 Blood Pressure Mean 89 10/15/19 16:30 Blood Pressure Position Supine 10/15/19 09:44 Pulse Oximetry 98 10/16/19 12:37 Respiratory End-tidal CO2 31 10/15/19 16:31 Oxygen Delivery Method Nasal Cannula 10/16/19 12:37 Oxygen Flow Rate 1 10/16/19 12:37 Pain Level 0 10/16/19 11:10 Intake & Output 10/15/19 10/16/19 10/16/19 23:59 11:59 23:59 Intake Total 1020 / 1020 986.667 / 986.667 Output Total 600 / 600 525 / 525 Balance 420 / 420 461.667 / 461.667 Weight 68.7 kg 68.2 kg Intake: IV 1020 / 1020 986.667 / 986.667 Output: Urine 600 / 600 525 / 525 Other: Urine Color Dark Rafaela Dark Rafaela Urine Appearance Clear Clear Laboratory Results WBC 10.86 k/cumm (4.4-10.8) H 10/16/19 06:19 RBC 4.60 m/cumm (4.00-5.20) 10/16/19 06:19 Hgb 13.8 g/dL (12.0-15.5) 10/16/19 06:19 Hct 41.2 % (36.0-46.0) 10/16/19 06:19 MCV 89.6 fL (80-95) 10/16/19 06:19 MCH 30.0 pg (27.0-33.0) 10/16/19 06:19 MCHC 33.5 g/dL (32.0-36.0) 10/16/19 06:19 RDW 13.5 % (11.7-14.6) 10/16/19 06:19 Plt Count 255 x1000/uL (130-400) 10/16/19 06:19 MPV 10.4 fL (8.0-11.0) 10/16/19 06:19 Immature Gran % 0.2 % 10/16/19 06:19 Neutrophils % 72.5 10/16/19 06:19 Lymphocytes % 18.2 10/16/19 06:19 Monocytes % 8.8 10/16/19 06:19 Eosinophils % 0.2 10/16/19 06:19 Basophils % 0.1 10/16/19 06:19 Absolute Neutrophils 7.87 k/cumm (1.2-6.7) H 10/16/19 06:19 Absolute Lymphocytes 1.98 k/cumm (1.2-3.4) 10/16/19 06:19 Absolute Monocytes 0.96 k/cumm (0.11-0.7) H 10/16/19 06:19 Absolute Eosinophils 0.02 k/cumm (0.0-0.7) 10/16/19 06:19 Absolute Basophils 0.01 k/cumm (0.0-0.2) 10/16/19 06:19 PT 10.2 sec (9.3-11.0) 10/15/19 08:30 INR 1.0 (0.9-1.1) 10/15/19 08:30 APTT 26.5 sec (21.0-31.4) 10/15/19 08:30 Sodium 143 mmol/L (136-145) 10/16/19 06:19 Potassium 3.4 mmol/L (3.5-5.1) L 10/16/19 06:19 Chloride 107 mmol/L (98-107) 10/16/19 06:19 Carbon Dioxide 21.0 mmol/L (21.0-32.0) 10/16/19 06:19 Anion Gap 15.0 mmol/L (3-11) H 10/16/19 06:19 BUN 12 mg/dL (7-18) 10/16/19 06:19 Creatinine 0.98 mg/dL (0.55-1.02) 10/16/19 06:19 Estimated GFR/1.73 m2 55.18 (mL/min/1.73m2) 10/16/19 06:19 Glucose 103 mg/dL (74-106) 10/16/19 06:19 Calcium 8.4 mg/dL (8.5-10.1) L 10/16/19 06:19 Magnesium 2.1 mg/dL (1.8-2.4) 10/15/19 08:30 Total Bilirubin 0.6 mg/dL (0.2-1.0) 10/15/19 08:30 AST 21 U/L (15-37) 10/15/19 08:30 ALT 23 U/L (14-59) 10/15/19 08:30 Alkaline Phosphatase 126 U/L (46-116) H 10/15/19 08:30 Creatine Kinase 130 U/L (26-192) 10/15/19 09:29 Troponin I < 0.05 ng/mL (<0.06) 10/15/19 08:30 Total Protein 7.7 g/dL (6.4-8.2) 10/15/19 08:30 Albumin 4.2 g/dL (3.4-5.0) 10/15/19 08:30 Triglycerides 92 mg/dL (<150) 10/16/19 06:19 Total Cholesterol 163 mg/dL (<200) 10/16/19 06:19 LDL Cholesterol, Calc 93 mg/dL (<100) 10/16/19 06:19 HDL Cholesterol 52 mg/dL (40-60) 10/16/19 06:19 TSH 1.57 uIU/mL (0.36-3.74) 10/15/19 08:30 COVID-19 PCR Negative (Negative) 10/15/19 16:52 Nasopharyn COVID-19 PCR Not Applicable 10/15/19 16:52 Ref Test Perform Site [facility] lab 10/15/19 16:52
--- NOTE | 2019-10-16 14:10 | DI.CT_ITS ---
EXAM: CT PELVIC WO CLINICAL HISTORY: fall injury, ? fracture TECHNIQUE: COMPARISON: CT CT BRAIN NECK CTA from 10/15/2019 FINDINGS: CT examination of the pelvis was performed without contrast administration. There is a Ferrari cathete r in the urinary bladder. No pelvic mass or adenopathy seen. No significant abdominal wall hematoma hernia. There is no evidence of a femoral fracture. Bones of pelvis appear intact throughout with no pelvic fracture. Mild degenerative spurring of the acetabula noted bilaterally. IMPRESSION: No evidence of acute hip fracture.
--- NOTE | 2019-10-16 15:00 | W.PM.DS.N ---
Date of service: 10/16/19 Time of Service: 15:01 DS: Diagnosis Discharge Diagnosis (1) Left hip pain: Status: Acute (2) Acute right MCA stroke: Status: Acute (3) HTN (hypertension): Status: Chronic (4) Hx of hyperlipidemia: Status: Acute (5) Hypothyroidism: Status: Chronic Discharge Plan Disposition Patient Disposition: [facility] Condition: Critical Discharge Details Chief Complaint: CVA/TIA Clinical Impression: Acute right MCA stroke Reason For Visit: CVA Admit Date/Time: 10/15/19 15:00 Admit Provider: Tamela Mata Attending Provider: Tamela Maat Primary Care Provider: Brandie Yost ED Provider: Janeen Andres Hospital Course Hospital Course: This is a 74-year-old female with a history of hypertension, hyperlipidemia, hypothyroidism who is normally alert, ambulatory and independent who presented to the ED by EMS with left-sided facial droop and left arm and leg weakness of unknown timeframe. Patient last seen normal at 1730 the night prior (10/14/19) while at a group function. Patient told EMS that she got up to go to the bathroom at 330 and fell. Neighbor or friend checked on her around 8:00 and patient was noted to have left-sided facial droop, left arm and leg weakness. work up in the ED shows a possible right hemispheric infarct with possible acute thrombosis right MCA on CT without contrast and a CTA shows occulsion of right MCA. Neurology at [facility] was contacted and although they agree she should be transferred they had no beds. [facility] was called and accepted but bed not available for 24 hours so she was admitted here under hospitalist services. Overnight she remained hemodynamically stable her lisinopril and amlodipine were placed on hold to allow for permissive hypertension with a blood pressure goal systolic 160-180, she remained 150-170. She was kept n.p.o. while awaiting a speech swallow evaluation. Her potassium level this morning was 3.4 so she received 20 meq of IV potassium. Magnesium level was 2.0. Her lipids were checked triglycerides 92 total cholesterol 163 LDL 93 HDL 52. Her TSH is 1.57. Echocardiogram results: Left Ventricle : The left ventricle is normal size. The left ventricular systolic function is normal. The left ventricular ejection fraction is within the normal range. There is normal left ventricular wall thickness. There is normal LV segmental wall motion. The left ventricular diastolic function is normal. LVEF is 55-60%. Right Ventricle : Right ventricle is not well visualized. Right ventricular systolic function could not be assessed. Atria : The left atrium size is normal. Right atrium is not well visualized. The interatrial septum is intact with no evidence for an atrial septal defect. Valves: There are no hemodynamically significant valvular lesions. Great Vessels : The ascending aorta is mildly dilated. Aortic arch is normal in caliber. IVC is normal in size and collapses >50% with inspiration. Please see remainder of study for further details. There is no prior study available for comparison. She was given aspirin 325 mg and her home dose of simvastatin 40 mg daily. While working with physical therapy it was noted she was complaining of left hip pain which she did sustain a fall at home prior to ED arrival. an xray of her pelvis and hip was obtained and showed a question of a minimal lucency projected over the femoral head on the AP view and a question of minimal cortical discontinuity of the femoral neck on the lateral view a CT or MRI was suggested. A CT showed no acute hip fracture. She has remained medically stable and essentially unchanged since her admission last evening. [facility] did call and notify us that a bed is available and she is to be transported by ground EMS with [employer] level service. Case and plan of care and discharge discussed with Dr. Mata who is in agreement . Home Meds and New Rx's Prescriptions: No Action aspirin [Aspir-81] 81 MG tablet,delayed release (DR/EC) 81 mg PO DAILY RF: 0 simvastatin 40 MG tablet 40 mg PO DAILY RF: 0 levothyroxine 75 MCG tablet 75 mcg PO DAILY RF: 0 lisinopril 40 MG tablet 40 mg PO DAILY RF: 0 cholecalciferol (vitamin D3) 1,000 UNITS tablet 1,000 units PO DAILY RF: 0 naproxen 500 MG tablet 500 mg PO BID PRN PRNQty: 30 RF: 0 amlodipine 5 mg Tablet 5 mg PO DAILY RF: 0 Discharge Instructions Instructions: Stroke (DC) Activity:: bedrest Equipment/Supplies:: No Equipment Needed Diet:: npo Discharge Orders Discharge Orders: Discharge Order (Routine); Ordered 10/16/19 Ordered By: Deborah Boyer Discharge Data Discharge Date/Time-TO BE ENTERED AT DEPARTURE: 10/16/19 15:35 DS: Summary Status at Discharge Functional status at discharge: bed bound Overall status at discharge: patient is not back to baseline Mental Status: mental status grossly normal and other Speech and Movement: other (slightly lethargic but responds appropriately. ) Mood: other Affect: blunted Exam Psych Mental Status: mental status grossly normal and other Speech and Movement: other (slightly lethargic but responds appropriately. ) Mood: other Affect: blunted DS: Data Vitals/I&O Vitals and I&O: Vital Signs Temperature 37.8 C H 10/16/19 11:10 Temperature Source Tympanic 10/16/19 11:10 Pulse 56 L 10/16/19 11:10 Pulse Rhythm Regular 10/16/19 07:37 Pulse 90 10/15/19 16:31 Respiratory Rate 18 10/16/19 11:10 Respiratory Effort Non-Labored 10/16/19 07:37 Respiratory Depth Normal 10/16/19 07:37 Respiratory Pattern Normal 10/16/19 07:37 Blood Pressure 155/70 H 10/16/19 11:10 Blood Pressure Mean 89 10/15/19 16:30 Blood Pressure Position Supine 10/15/19 09:44 Pulse Oximetry 98 10/16/19 12:37 Respiratory End-tidal CO2 31 10/15/19 16:31 Oxygen Delivery Method Nasal Cannula 10/16/19 12:37 Oxygen Flow Rate 1 10/16/19 12:37 Pain Level 0 10/16/19 11:10 Intake & Output 10/15/19 10/16/19 10/16/19 23:59 11:59 23:59 Intake Total 1020 / 1020 986.667 / 986.667 Output Total 600 / 600 525 / 675 150 / 675 Balance 420 / 420 461.667 / 311.667 -150 / 311.667 Weight 68.7 kg 68.2 kg Intake: IV 1020 / 1020 986.667 / 986.667 Output: Urine 600 / 600 525 / 675 150 / 675 Other: Urine Color Dark Rafaela Dark Rafaela Dark Rafaela Urine Appearance Clear Clear Clear Data Completed and Pending Labs on day of discharge: Labs from last 24 hours 10/16/19 10/16/19 10/16/19 06:19 06:19 06:19 WBC 10.86 H RBC 4.60 Hgb 13.8 Hct 41.2 MCV 89.6 MCH 30.0 MCHC 33.5 RDW 13.5 Plt Count 255 MPV 10.4 Immature Gran % 0.2 Neutrophils % 72.5 Lymphocytes % 18.2 Monocytes % 8.8 Eosinophils % 0.2 Basophils % 0.1 Absolute Neutrophils 7.87 H Absolute Lymphocytes 1.98 Absolute Monocytes 0.96 H Absolute Eosinophils 0.02 Absolute Basophils 0.01 Sodium 143 Potassium 3.4 L Chloride 107 Carbon Dioxide 21.0 Anion Gap 15.0 H BUN 12 Creatinine 0.98 Estimated GFR/1.73 m2 55.18 Glucose 103 Calcium 8.4 L Magnesium 2.0 Triglycerides 92 Total Cholesterol 163 LDL Cholesterol, Calc 93 HDL Cholesterol 52 COVID-19 PCR Nasopharyn COVID-19 PCR Ref Test Perform Site 10/15/19 16:52 WBC RBC Hgb Hct MCV MCH MCHC RDW Plt Count MPV Immature Gran % Neutrophils % Lymphocytes % Monocytes % Eosinophils % Basophils % Absolute Neutrophils Absolute Lymphocytes Absolute Monocytes Absolute Eosinophils Absolute Basophils Sodium Potassium Chloride Carbon Dioxide Anion Gap BUN Creatinine Estimated GFR/1.73 m2 Glucose Calcium Magnesium Triglycerides Total Cholesterol LDL Cholesterol, Calc HDL Cholesterol COVID-19 PCR Negative Nasopharyn COVID-19 PCR Not Applicable Ref Test Perform Site [facility] Medical History (Updated 10/16/19 @ 14:15 by Deborah Boyer NP) HTN (hypertension) (Chronic) Hx of hyperlipidemia (Acute) Hypothyroidism (Chronic) Surgical History (Updated 10/15/19 @ 08:53 by Janeen Andres DO) History of tonsillectomy (Chronic) Social History Smoking/Tobacco Use Status: Current every day Alcohol Intake: current Alcohol Intake frequency: a few times a month Drug use: Never Substance use type: does not use Do you feel safe at home: Yes
--- NOTE | 2019-10-16 15:09 | NUR.NOTE ---
Nursing Note: Attempted to call [facility] to give report. Per charge nurse they will call back later to get report. LEAH, [employer]
== END 2019-10-16 15:35 | DRG 65 ==
LOC: ER 15:51 → MS 17:17
PROVIDERS: Nurse Practitioner Acute Care; Physician Assistant; Admitting Provider Internal Medicine; Emergency Provider Physician Assistant; PCP Family Medicine; Visit Provider Internal Medicine
DX: I63.511 Cerebral infarction due to unspecified occlusion or stenosis of right middle cerebral artery (principal); G81.94 Hemiplegia, unspecified affecting left nondominant side; I10 Essential (primary) hypertension; E03.9 Hypothyroidism, unspecified; E78.5 Hyperlipidemia, unspecified; M25.552 Pain in left hip; W19.XXXA Unspecified fall, initial encounter; Z79.82 Long term (current) use of aspirin
CPT/HCPCS: 36415; 70496; 70498; 80048; 80053; 80061; 82550; 93005; 93306; 96360; 96361; 97162; 97530; 99223; 99239; 99291; 99292; U0003; 70450; 71046; 72192; 73502; 83735; 84443; 84484; 85025; 85610; 85730; 93010; J3490

== ENCOUNTER → 2019-10-16 14:08 | Outpatient (BNVA) | payer MEDICARE, SELFPAY | PROVIDERS: PCP Family Medicine; Referring Provider Family Medicine; Visit Provider Psychiatry & Neurology Neurology | DX: R69 Illness, unspecified (principal) ==